=== PATIENT | female | born 1940 | race Hispanic/Latino ===

== ENCOUNTER 2018-03-15 10:56 | Day surgery (SDC) | payer MEDICARE ==
[2018-03-15] MEDS ORDERED: MYDRIACYL ONE (11:01)
[2018-03-15] MEDS ORDERED: IOPIDINE ONE (11:01)
[2018-03-15] MEDS ORDERED: AK-Dilate ONE (11:01)
[2018-03-15 11:30] VITALS: BP 140/84
[2018-03-15] MEDS ORDERED: NEOFRIN OS ONE (11:53)
[2018-03-15] MEDS ORDERED: IOPIDINE OS ONE (11:53)
[2018-03-15] MEDS ORDERED: MYDRIACYL OU ONE (11:53)
== END 2018-03-15 10:57 | disposition home or self-care (01) ==
LOC: OR 10:56
PROVIDERS: ATTEND Specialist
DX: H26.492 Other secondary cataract, left eye (principal); K21.9 Gastro-esophageal reflux disease without esophagitis; E03.9 Hypothyroidism, unspecified; M19.90 Unspecified osteoarthritis, unspecified site; I73.9 Peripheral vascular disease, unspecified; F32.9 Major depressive disorder, single episode, unspecified; Z90.710 Acquired absence of both cervix and uterus; Z98.42 Cataract extraction status, left eye; Z98.41 Cataract extraction status, right eye; Z79.899 Other long term (current) drug therapy; Z96.651 Presence of right artificial knee joint; Z98.890 Other specified postprocedural states
CPT/HCPCS: 82962